=== PATIENT | female | born 1985 | race African-American/Black ===

== ENCOUNTER 2017-03-26 20:22 | Emergency (ER) | payer SELFPAY ==
[~2017-03-26] VITALS: Ht 175.3 cm; Wt 90.5 kg
[2017-03-27 00:54] VITALS: BP 128/89
== END 2017-03-27 01:34 | disposition left against medical advice (07) ==
LOC: ER 23:27
DX: Z53.21 Procedure and treatment not carried out due to patient leaving prior to being seen by health care provider (principal)